=== PATIENT | female | born 1970 | race African-American/Black ===

== ENCOUNTER 2016-11-15 17:34 | Emergency (ER) | payer SELFPAY ==
--- NOTE | ~2016-11-15 | CR181 ---
[facility] A Service of [facility] RADIOLOGY TEXT RESULTS PATIENT: VLADIMIR COLEY LOCATION: [facility] : [birth year] UNIT #: [id number] AGE: [address]: Yanira Rodriguez APRN SEX: F ORDER DR: [id number] [facility] [address] [place], [place] [address] [id number] E MR#: [id number] #: [id number] NAME: VLADIMIR COLEY. : 1970 SEX: F STUDY DATE/TIME: 11/15/2016 19:37 UNIT: [id number] ROOM: STUDY DESCRIPTION: CR Lumbar Spine 2 or 3 Views Attending Physician: Yanira Rodriguez A.P.R.N. Ordering Physician: [facility] Primary Care Physician: Matt Vigil M.D. MEDICAL IMAGING REPORT This report is preliminary unless electronic signature is present EXAM 3 views lumbar spine 11/15/2016 HISTORY Abdominal pain after bending over, hurts into her legs. Symptoms of present for 2 days. No known injury. COMPARISON STUDIES None. FINDINGS AP and lateral projections of the lumbar segment show good mineralization of both anterior and posterior elements. They are all anatomically normal without indication of fracture, dislocation, or malignant change of a sclerotic or lytic type. There is no congenital defect noted. The sacroiliac joints are normal. IMPRESSION Normal lumbar spine. Dictated by... Rebecca Ocasio M.D. THIS IS AN ELECTRONICALLY VERIFIED REPORT Rebecca Ocasio M.D. at 11/16/2016 10:03 AM LLH/pcl TD: 11/15/2016 22:12 JOB #: [id number] MEDICAL IMAGING REPORT [facility] A Service [facility] RADIOLOGY TEXT RESULTS PATIENT: VLADIMIR COLEY LOCATION: [facility] : 70 UNIT #: [id number] AGE: [address]: Yanira Rodriguez APRN SEX: F ORDER DR: Page 1 of 1 COPY
== END 2016-11-15 21:50 | disposition home or self-care (01) ==
LOC: CFTX 17:34 → CED 17:34 → CFTX 18:40
DX: S33.5XXA Sprain of ligaments of lumbar spine, initial encounter (principal); R03.0 Elevated blood-pressure reading, without diagnosis of hypertension; I48.91 Unspecified atrial fibrillation; F17.210 Nicotine dependence, cigarettes, uncomplicated; X58.XXXA Exposure to other specified factors, initial encounter; Y92.69 Other specified industrial and construction area as the place of occurrence of the external cause; Y99.0 Civilian activity done for income or pay
CPT/HCPCS: 72100; 96372; 99283; J1885

== ENCOUNTER 2017-01-28 01:23 | Emergency (ER) | payer SELFPAY ==
--- NOTE | ~2017-01-28 | EKG ---
PATIENT: VLADIMIR COLEY UNIT #: [id number] Ventricular Rate: 85 BPM Atrial Rate: 147 BPM QRS Duration: 90 ms Q-T Interval: 356 ms QTC Calculation(Bezet): 423 ms Calculated R [place]: 22 degrees Calculated T [place]: 10 degrees Diagnosis Line: Atrial fibrillation Diagnosis Line: ST elevation, consider early repolarization, Diagnosis Line: pericarditis, or injury Diagnosis Line: Abnormal ECG Diagnosis Line: When compared with ECG of 03-AUG-2009 17:40, Diagnosis Line: Atrial fibrillation has replaced Sinus rhythm Diagnosis Line: Confirmed by SUKHI SALTER MD ([id number]) on 01/28/2017 Diagnosis Line: 11:07:03 PM INTERPRETING MD: GAETANO MEYER
--- NOTE | ~2017-01-28 | EKG ---
PATIENT: VLADIMIR COLEY UNIT #: [id number] Ventricular Rate: 57 BPM Atrial Rate: 57 BPM P-R Interval: 170 ms QRS Duration: 88 ms Q-T Interval: 486 ms QTC Calculation(Bezet): 473 ms P [place]: 28 degrees Calculated R [place]: 14 degrees Calculated T [place]: 13 degrees Diagnosis Line: Sinus bradycardia Diagnosis Line: Anterior infarct , age undetermined Diagnosis Line: Abnormal ECG Diagnosis Line: No previous ECGs available Diagnosis Line: Confirmed by SUKHI SALTER MD ([id number]) on 01/28/2017 Diagnosis Line: 11:07:55 PM INTERPRETING MD: GAETANO MEYER
--- NOTE | ~2017-01-28 | CR72 ---
[facility] A Service of [facility] RADIOLOGY TEXT RESULTS PATIENT: VLADIMIR COLEY LOCATION: [facility] : 70 UNIT #: [id number] AGE: [address]: Jose Alberto Zuniga MD SEX: F ORDER DR: [id number] [facility] [address] [place], [place] [address] [id number] E MR#: [id number] #: [id number] NAME: VLADIMIR COLEY. : 1970 SEX: F STUDY DATE/TIME: 01/28/2017 02:18 UNIT: [facility] ROOM: STUDY DESCRIPTION: CR Chest Single View Portable Attending Physician: Jose Alberto Zuniga M.D. Ordering Physician: Jose Alberto Zuniga M.D. Primary Care Physician: Matt Vigil M.D. MEDICAL IMAGING REPORT This report is preliminary unless electronic signature is present EXAM Portable chest 01/28 at 02:18. INDICATIONS Heart palpitations today. Atrial fibrillation. Left side chest pain. TECHNIQUE AP portable chest was obtained. COMPARISON No comparison. FINDINGS The heart is enlarged. The lungs are clear except for granulomatous calcifications. No pneumothorax. IMPRESSION Cardiomegaly. No active disease. Dictated by... Cade Simeon Jr., M.D. THIS IS AN ELECTRONICALLY VERIFIED REPORT Cade Simeon Jr., M.D. at 01/29/2017 9:11 PM RLK/mel TD: 01/29/2017 09:05 JOB #: [id number] MEDICAL IMAGING REPORT Page 1 of 1 COPY
--- NOTE | ~2017-01-28 | EKG ---
PATIENT: VLADIMIR COLEY UNIT #: [id number] Ventricular Rate: 142 BPM Atrial Rate: 147 BPM QRS Duration: 88 ms Q-T Interval: 306 ms QTC Calculation(Bezet): 470 ms Calculated R [place]: 19 degrees Calculated T [place]: 7 degrees Diagnosis Line: Atrial fibrillation with rapid ventricular Diagnosis Line: response Diagnosis Line: Abnormal ECG Diagnosis Line: When compared with ECG of 03-AUG-2009 17:40, Diagnosis Line: Atrial fibrillation has replaced Sinus rhythm Diagnosis Line: Vent. rate has increased BY 76 BPM Diagnosis Line: Confirmed by SUKHI SALTER MD ([id number]) on 01/28/2017 Diagnosis Line: 11:06:32 PM INTERPRETING MD: GAETANO MEYER
[2017-01-28 02:19] LABS: BASOPHIL# 0.2 X10e3 (0-0.3); BASOPHIL% 2.1 % (0-2.5); EOSINOPHIL# 0.2 X10e3 (0-0.7); EOSINOPHIL% 1.9 % (0.0-7.0); HEMATOCRIT 41.5 % (35.0-45.0); HEMOGLOBIN 13.3 gm/dL (12.0-16.0); LYMPHOCYTE# 4.3 X10e3 (1.0-3.5); LYMPHOCYTE% 36.4 % (17.0-45.0); MEAN CELL VOLUME 84.1 FL (83-96); MEAN CORPUSCULAR HEMOGLOBIN 26.9 PG (28-34); MEAN PLATELET VOLUME 7.8 FL (6.5-11.5); MONOCYTE# 0.6 X10e3 (0-1.0); MONOCYTE% 4.8 % (3.0-12.0); NEUTROPHIL# 6.5 X10e3 (1.5-7.1); NEUTROPHIL% 54.8 % (40-75); PLATELET COUNT 411 X10e3 (140-420); RED BLOOD COUNT 4.94 X10e (3.90-5.30); RED CELL DISTRIBUTION WIDTH 16.5 % (11.0-15.5); WHITE BLOOD COUNT 11.8 X10e3 (4.0-10.5)
[2017-01-28 02:20] LABS: DIFF IND NO
[2017-01-28 02:35] LABS: PARTIAL THROMBOPLASTIN TIME 30.5 SECONDS (23.5-31.3); PROTHROMBIN TIME (PATIENT) 10.9 SECONDS (10.0-11.7)
[2017-01-28 02:42] LABS: BILIRUBIN,TOTAL 0.4 mg/dL (0.2-2.0); BUN/CREATININE RATIO 13.84; CALCIUM SERUM 9.4 mg/dL (8.4-10.2); CREATININE SERUM 1.3 mg/dL (0.6-1.4); MAGNESIUM 1.9 mg/dL (1.6-3.0); POTASSIUM 3.6 mmol/L (3.5-5.1); PROTEIN TOTAL SERUM 7.8 g/dL (6.0-8.3)
[2017-01-28 02:44] LABS: BILIRUBIN, DIRECT 0.1 mg/dL (0.0-0.2); BILIRUBIN,INDIRECT 0.3 mg/dL (0.0-0.9)
[2017-01-28 03:06] LABS: POC - CKMB <1.0 ng/mL (0.0-7.9); POC - TROPONIN <0.05 ng/mL (<=0.05)
[2017-01-28 04:51] LABS: POC - CKMB <1.0 ng/mL (0.0-7.9); POC - TROPONIN <0.05 ng/mL (<=0.05)
== END 2017-01-28 06:05 | disposition home or self-care (01) ==
LOC: CED 01:23
PROVIDERS: Emergency Medicine
DX: I48.0 Paroxysmal atrial fibrillation (principal); N28.9 Disorder of kidney and ureter, unspecified; F17.200 Nicotine dependence, unspecified, uncomplicated; Z79.82 Long term (current) use of aspirin
CPT/HCPCS: 36415; 71010; 80048; 80076; 82553; 83735; 84443; 84484; 85025; 85610; 85730; 93005; 96374; 96376; 99285